=== PATIENT | female | born 1945 | race Caucasian/White ===

== ENCOUNTER → 2024-11-02 | Outpatient (CLI) | payer MEDICARE, SELFPAY ==
[2024-11-02 17:40] LABS: Absolute Lymphocyte Count 1.42 X10^3/uL (0.83-4.51); Absolute Neutrophil Count 3.3 X10^3/uL (2.0-7.7); Basophil# 0.02 X10^3/uL; Basophil% 0.4 % (0-1); Eosinophil# 0.08 X10^3/uL; Eosinophils% 1.5 % (0-5); Hematocrit 42.1 % (37-47); Hemoglobin 13.7 g/dL (12.0-15.0); Lymphocyte # 1.42 X10^3/ul (0.83-4.51); Mean Corp Hgb Conc 32.5 g/dL (32-36); Mean Corpuscular Hgb 29.1 pg (27.0-32.0); Mean Corpuscular Volume 89.6 fL (81-99); Mean Platelet Vol. 10.5 fl (6.2-12.0); Monocyte# 0.66 X10^3/uL; Monocyte% 12.1 % (0-10); NRBC Flagged by Analyzer 0 % (0-5); Neutrophil # 3.27 X10^3/uL (2.7-7.7); Neutrophil % 59.8 % (47-70); Platelet Count 141 K/mm3 (150-450); RBC Distribution Width CV 13.1 % (11.6-14.6); White Blood Count 5.5 K/mm3 (4.4-11.0)
[2024-11-02 17:59] LABS: Erythrocyte Sedimentation Rate 4 mm/hr (0-30)
[2024-11-02 18:29] LABS: CRP 3.48 mg/L (0.0-3.0)
== END | disposition home or self-care (01) ==
LOC: MTLAB 11:11
PROVIDERS: PCP Family Medicine; Referring Provider Ophthalmology; Visit Provider Ophthalmology
DX: G45.3 Amaurosis fugax (principal)
CPT/HCPCS: 36415; 85025; 85652; 86140

== ENCOUNTER → 2024-11-27 | Outpatient (CLI) | payer MEDICARE, SELFPAY ==
--- NOTE | 2024-11-27 13:39 | CDU_ITS ---
Reason For Study Reason For Study: Amaurosis Fugax Rt. Velocities/BP Lt. Velocities/BP Prox CCA 93/9 cm/sec. Prox CCA 95/15 cm/sec. Mid CCA 51/12 cm/sec. Mid CCA 83/15 cm/sec. Dist CCA 79/16 cm/sec. Dist CCA 56/14 cm/sec. Prox ICA 82/13 cm/sec. Prox ICA 89/25 cm/sec. Mid ICA 73/19 cm/sec. Mid ICA 89/26 cm/sec. Dist ICA 98/25 cm/sec. Dist ICA 99/23 cm/sec. Rt. ICA/CCA = 1.9. Lt. ICA/CCA = 1.2. Prox ECA 84/8 cm/sec. Prox ECA 86/13 cm/sec. Rt. Vert. 47/12 cm/sec. Lt. Vert. 48/14 cm/sec. Right Extracranial There is homogeneous, irregular atherosclerotic plaque noted in the right common carotid artery. There is heterogeneous, irregular atherosclerotic plaque noted in the right internal carotid artery. There is intimal thickening but no significant atherosclerotic plaque noted in the right external carotid artery. Antegrade flow is noted in the right vertebral artery. Left Extracranial There is heterogeneous, irregular atherosclerotic plaque noted in the left common carotid artery. There is heterogeneous, irregular atherosclerotic plaque noted in the left internal carotid artery. There is intimal thickening but no significant atherosclerotic plaque noted in the left external carotid artery. Antegrade flow is noted in the left vertebral artery. Procedure Carotid Duplex [id number]. This is a Carotid Duplex examination using B-mode, color flow and specral Doppler. Exam performed in department. VL/Carotid Duplex Ultrasound Interpretation Summary Mild (<50%) stenosis right extracranial internal carotid. Mild (<50%) stenosis left extracranial internal carotid. Patent and antegrade vertebrals bilaterally. Ordering Physician: Aristides Cabrera Referring Physician: Christel Tay Performed By: Corrie Mera, DILMACS, RVT
--- NOTE | 2024-11-27 13:40 | ECHOD_ITS ---
Reason For Study Reason For Study: AMAUROSIS FUGAX Procedure This was a 2D Doppler, Color Flow transthoracic echocardiogram. Exam performed in department. Left Ventricle Normal LV size. Left ventricular systolic function is normal. The left ventricular ejection fraction is 65 %. No regional wall motion abnormalities noted. Right Ventricle Normal RV size. Normal systolic function. Atria Normal left atrium. Normal right atrium. Mitral Valve Normal mitral valve. Mild (1+) eccentric mitral valve insufficiency. Tricuspid Valve Normal tricuspid valve. Aortic Valve Normal aortic valve. Trisinus/trileaflet aortic valve. Pulmonic Valve Normal pulmonic valve. Great Vessels Normal aortic root. The pulmonary artery is normal size. Inferior vena cava collapse with respiration. Pericardium/Pleural No pericardial effusion. MMode/2D Measurements & Calculations LVIDd: 4.3 cm IVSd: 0.95 cm Ao root diam: 3.0 cm LVIDs: 2.8 cm LVPWd: 0.88 cm RVDd: 3.0 cm FS: 35.1 % LAV(MOD-bp): 59.8 ml LVAd ap4: 28.3 cm2 SV(MOD-sp4): 56.6 ml LAV(MOD-bp) Indexed: 33.5 ml/m2 LVLd ap4: 7.4 cm SI(MOD-sp4): 31.7 ml/m2 LAV(MOD-sp2): 55.8 ml EDV(MOD-sp4): 88.9 ml LAV(MOD-sp4): 57.9 ml EDV(sp4-el): 91.4 ml LVAs ap4: 15.4 cm2 LVLs ap4: 6.1 cm ESV(MOD-sp4): 32.3 ml ESV(sp4-el): 33.0 ml EF(MOD-sp4): 63.7 % EF(sp4-el): 63.9 % SV(sp4-el): 58.4 ml LA A4 area: 18.9 cm2 LA dimension(2D): 3.7 cm RA A4 area: 13.7 cm2 TAPSE: 2.4 cm Time Measurements MV dec time: 0.19 sec Doppler Measurements & Calculations MV E max mohinder: 96.8 cm/sec Lat Peak E' Mohinder: 8.9 cm/sec Med Peak E' Mohinder: 7.0 cm/sec MV A max mohinder: 110.1 cm/sec E/E' lat: 10.9 E/E' med: 13.7 MV E/A: 0.88 Ao V2 max: 176.1 cm/sec LV V1 max: 155.4 cm/sec PA V2 max: 113.6 cm/sec Ao max P.4 mmHg LV V1 max P.7 mmHg TR max mohinder: 324.4 cm/sec TR max P.1 mmHg ECHO/Echo Complete Interpretation Summary Normal LV size. Left ventricular systolic function is normal. The left ventricular ejection fraction is 65 %. Mild (1+) eccentric mitral valve insufficiency. Ordering Physician: Aristides Cabrera Referring Physician: ISMAEL ACOSTA Performed By: Gabby Gomez RDCS
== END | disposition home or self-care (01) ==
LOC: CVS 13:38
PROVIDERS: PCP Family Medicine; Referring Provider Ophthalmology; Visit Provider Ophthalmology
DX: G45.3 Amaurosis fugax (principal)
CPT/HCPCS: 93306; 93880